=== PATIENT | male | born 1975 ===

== ENCOUNTER 2020-11-23 15:21 | Emergency (ER) | payer OTHER ==
[~2020-11-23] VITALS: Ht 172.7 cm; Wt 63.5 kg
[2020-11-23] MEDS ORDERED: Norco 5-325 Ta1 EACH PO (17:08)
== END 2020-11-23 17:12 | disposition home or self-care (01) ==
LOC: ER 15:21
DX: S62.101A Fracture of unspecified carpal bone, right wrist, initial encounter for closed fracture (principal); W01.0XXA Fall on same level from slipping, tripping and stumbling without subsequent striking against object, initial encounter
CPT/HCPCS: 29125; 73110; 99283-25

== ENCOUNTER 2020-12-29 11:31 | Emergency (ER) | payer OTHER ==
[~2020-12-29] VITALS: Ht 165.1 cm; Wt 69.8 kg
[~2020-12-29 11:31] MED LIST: Norco 5-325 Ta1 EACH PO
[2020-12-29] MEDS ORDERED: NEOPOLHCSU BOTHEARS (12:01)
== END 2020-12-29 13:28 | disposition home or self-care (01) ==
LOC: ER 11:31
DX: H60.93 Unspecified otitis externa, bilateral (principal); Z88.5 Allergy status to narcotic agent; F17.200 Nicotine dependence, unspecified, uncomplicated
CPT/HCPCS: 99282